=== PATIENT | female | born 1995 | race Caucasian/White ===

== ENCOUNTER 2025-02-12 08:39 | Outpatient (CLI) | payer BC | END 2025-02-12 08:40 | disposition home or self-care (01) | LOC: CSHULT 08:39 | PROVIDERS: ATTEND Physician Assistant Medical | DX: R63.5 Abnormal weight gain (principal); E74.9 Disorder of carbohydrate metabolism, unspecified; N94.6 Dysmenorrhea, unspecified; E28.2 Polycystic ovarian syndrome | CPT/HCPCS: 76700; 76856; 93976 ==